=== PATIENT | male | born 1965 | race Native Hawaiian/Other Pacific Islander ===

== ENCOUNTER 2018-04-03 10:19 | Outpatient (CLI) | payer OTHER ==
[~2018-04-03 10:19] MED LIST: DIAZ2TAB PO; HYDR-2748 PO; HYDR25TA60 PO; JANUMET1 TAB OR; KLOR-CON 1010 MEQ OR; PRINIVIL10 MG OR
== END 2018-04-03 22:36 | disposition home or self-care (01) ==
LOC: US 10:19
DX: M79.661 Pain in right lower leg (principal); R60.0 Localized edema

== ENCOUNTER 2018-05-03 12:32 | Outpatient (CLI) | payer OTHER | END 2018-05-03 22:44 | disposition home or self-care (01) | LOC: US 12:32 | DX: I10 Essential (primary) hypertension (principal); M54.5 Low back pain; M79.661 Pain in right lower leg; R60.0 Localized edema ==

== ENCOUNTER 2019-09-12 11:07 | Outpatient (CLI) | payer BC | END 2019-09-12 22:27 | disposition home or self-care (01) | LOC: US 11:07 | DX: I10 Essential (primary) hypertension (principal); E11.40 Type 2 diabetes mellitus with diabetic neuropathy, unspecified ==

== ENCOUNTER 2019-10-08 08:39 | Outpatient (CLI) | payer BC | END 2019-10-08 20:13 | disposition home or self-care (01) | LOC: LAB 08:39 | DX: I10 Essential (primary) hypertension (principal) | CPT/HCPCS: 83835; 84585 ==

== ENCOUNTER 2019-10-09 08:06 | Outpatient (CLI) | payer BC | END 2019-10-09 19:03 | disposition home or self-care (01) | LOC: RESP 08:06 | DX: I10 Essential (primary) hypertension (principal) | CPT/HCPCS: 93306 ==

== ENCOUNTER 2019-10-15 09:24 | Outpatient (CLI) | payer BC | END 2019-10-15 21:40 | disposition home or self-care (01) | LOC: US 09:24 | DX: I10 Essential (primary) hypertension (principal) ==

== ENCOUNTER 2021-07-03 09:48 | Outpatient (CLI) | payer BC | END 2021-07-03 19:18 | disposition home or self-care (01) | LOC: RAD 09:48 | PROVIDERS: ATTEND Nurse Practitioner Family | DX: M54.5 Low back pain (principal); J98.11 Atelectasis ==

== ENCOUNTER 2022-06-18 10:37 | Emergency (ER) | payer OTHER, BC ==
[~2022-06-18] VITALS: Ht 193 cm; Wt 93.0 kg
[2022-06-18 10:56] VITALS: TEMP 97.4
[2022-06-18 11:40] LABS: PLATELET COUNT 209 K/uL (142-355)
[2022-06-18 11:47] LABS: POTASSIUM 3.8 mmol/L (3.6-5.2)
[2022-06-18] MEDS ORDERED: CYCL10TA35 PO (13:14)
[2022-06-18 13:52] VITALS: BP 143/99
== END 2022-06-18 13:57 | disposition home or self-care (01) ==
LOC: ED 10:37
PROVIDERS: Emergency Medicine
DX: M54.59 Other low back pain (principal); G89.29 Other chronic pain
CPT/HCPCS: 36415; 80053; 85027; 96360; 96372; 96374; 96375; 99284; J2270; J2360; J2405